=== PATIENT | female | born 1935 | race Caucasian/White ===

== ENCOUNTER → 2017-09-08 | Outpatient (CLI) | payer MEDICARE, OTHER ==
[~2017-09-08] MED LIST: ACETAMINOPHEN650 M5 PO; ADULT LOW DOSE81 MG PO; ALEVE220 MG PO; AMIODARONE HCL400 MG PO; ANASTROZOLE1 MG PO; ANTACID500 MG PO; ARIXTRA SUBQ; ASPIRIN325 PO; CALCIUM 600 +1 EA10 PO; CALTRATE-600 W1 EACH PO; CARDIZEM CD120 MG PO; CARDIZEM CD180 MG PO; CELEBREX 200 M200 M1 PO; CHONDROITIN SU250 MG PO; COLACE 100 MG100 MG PO; COMPLETE M9 MG/15 ML PO; CYMBALTA30 MG PO; DIPHENHYDRAMINE25 M3 PO; ELIQUIS5 MG PO; ESTRACE PO; ESTRACE0.5 MG PO; FLEXERIL PO; FONDAPARIN2.5 MG/0.5 SUBQ; GLUCOSAMINE HC500 MG PO; HYDRALAZINE 5050 M1 PO; HYDROCHLOROTHIA25 M2 PO; HYDROCODON-ACE1 EAC7 PO; HYDROCODONE PO; LASIX 40 MG TAB40 M2 PO; LISINOPRIL PO; LOPRESSOR PO; LOPRESSOR100 MG PO; LOPRESSOR50 PO; MELOXICAM7.5 MG PO; METAMUCIL0.52 GM PO; METAXALONE800 MG PO; METOPROLOL PO; MOBIC7.5 MG PO; MULTAQ400 MG PO; MULTI-VITAMIN1 EAC5 PO; NEURONTIN 300300 M1 PO; NORCO 5-325 TA1 EACH PO; NORVASC10 MG PO; OXYCODONE HCL5 M1 PO; OXYIR5 MG PO; PERCOCET 5-3251 EACH PO; PERCOCET PO; PREDNISONE 20 M20 M1 PO; PRILOSEC 20 MG20 MG PO; RYTHMOL225 MG PO; SPIRONOLACTONE25 M1 PO; TAMIFLU30 MG; TIZANIDINE HCL 22 M1 PO; TOPROL XL25 MG PO; TRAMADOL 50 MG50 MG PO; TRAMADOL PO; TRIAMTERENE-HC1 EAC1 PO; VITAMIN D2000 UNIT PO; XGEVA120 MG/1.7 SQ; ZPAK PO; [UNRECOGNIZED DRUG - OTHER] TOP
--- NOTE | 2017-09-08 14:43 | 2DMMODE ---
[place] [address] 2 D/M-MODE ECHOCARDIOGRAM Name: DONALD GAMEZ Room: [facility]#: [id number] Admission: 09/08/17 Attend Phys: Mc Cline, Discharge: Date of : 31 Date of Service: 09/08/17 1443 Report #: [id number] THIS REPORT FOR: //name// APPROVED REPORT Study performed: 09/08/2017 09:08:06 EXAM: Comprehensive 2D, Doppler, and color-flow Echocardiogram Patient Location: Out-Patient Status: routine BSA: 1.81 HR: 80 bpm BP: 122/80 mmHg Other Information Study Quality: Good Indications Aortic Valve Disease 2D Dimensions LVEF(%): 52.73 (>50%) IVSd: 13.65 (7-11mm) LVOT Diam: 20.71 (18-24mm) LVDd: 29.68 mm PWd: 10.74 (7-11mm) Ascending Ao: 30.08 (22-36mm) LVDs: 21.95 (25-40mm) Aortic Root: 20.81 mm Mata's LVEF: 52.73 % Volumes Left Atrial Volume (Systole) LA ESV Index: 30.00 mL/m2 Aortic Valve AoV Peak Darnell.: 1.47 m/s AO Peak Gr.: 8.65 mmHg LVOT Max P.70 mmHg AO Mean Gr.: 4.90 mmHg LVOT Mean P.03 mmHg LVOT Max V: 0.96 m/s AO V2 VTI: 28.13 cm LVOT Mean V: 0.66 m/s OTTONIEL (VTI): 2.46 cm2 LVOT V1 VTI: 20.57 cm Mitral Valve MV Peak Gr.: 4.22 mmHg MV Mean Gr.: 2.88 mmHg E/A Ratio: 1.12 [place] [address] 2 D/M-MODE ECHOCARDIOGRAM Name: DONALD GAMEZ Room: [facility]#: [id number] Admission: 09/08/17 Attend Phys: Mc Cline, Discharge: Date of : 31 Date of Service: 09/08/17 1443 Report #: [id number] MV Decel. Time: 279.71 ms MV E Max Darnell.: 1.08 m/s MV PHT: 81.12 ms MVA (PHT): 2.71 cm2 TDI E/Lateral E': 13.50 E/Medial E': 18.00 Medial E' Darnell.: 0.06 m/s Lateral E' Darnell.: 0.08 m/s Pulmonary Valve PV Peak Darnell.: 0.75 m/s PV Peak Gr.: 2.22 mmHg Tricuspid Valve TR Peak Gr.: 16.64 mmHg RVSP: 21.64 mmHg Left Ventricle The left ventricle is normal size. There is normal LV segmental wall motion. Mild concentric left ventricular hypertrophy. Left ventricular systolic function is normal. The left ventricular ejection fraction is within the normal range. LVEF is 55-60%. The left ventricular diastolic function is normal. Right Ventricle The right ventricle is normal size. The right ventricular systolic function is normal. Pacemaker lead is present in the right ventricle. Atria Left atrium is mildly dilated. Pacemaker lead is present in the right atrium. Right atrium is mildly dilated. Aortic Valve Aortic valve is mildly calcified. Trace aortic regurgitation. There is no aortic valvular stenosis. Mitral Valve Moderate mitral annular calcification. Mild mitral regurgitation. No evidence of mitral valve stenosis. Tricuspid Valve The tricuspid valve is normal in structure. Mild tricuspid regurgitation. The RVSP is _28___ mmHg. Pulmonic Valve The pulmonary valve is normal in structure. There is no pulmon[place] [address] 2 D/M-MODE ECHOCARDIOGRAM Name: DONALD GAMEZ [id number] Admission: 09/08/17 Attend Phys: Mc Cline, Discharge: Date of : 31 Date of Service: 09/08/17 1443 Report #: [id number] Great Vessels The aortic root is normal in size. IVC is normal in size and collapses with >50% inspiration Pericardium There is no pericardial effusion. <Conclusion> LVEF is 55-60%. Left atrium is mildly dilated. Aortic valve is mildly calcified. Mild mitral regurgitation. <ELECTRONICALLY SIGNED> By: Rogerio Otero MD, FACC 09/08/17 1443 1443 1443 Rogerio Otero MD, FACC /INF
== END ==
LOC: M.CRD 08:50
DX: I34.0 Nonrheumatic mitral (valve) insufficiency (principal); I35.0 Nonrheumatic aortic (valve) stenosis

== ENCOUNTER → 2018-02-02 | Outpatient (CLI) | payer MEDICARE, OTHER | LOC: M.LAB 11:47 | DX: I50.32 Chronic diastolic (congestive) heart failure (principal); I48.0 Paroxysmal atrial fibrillation ==

== ENCOUNTER → 2018-10-06 | Outpatient (CLI) | payer MEDICARE, OTHER | LOC: M.RAD 13:30 | DX: Z13.820 Encounter for screening for osteoporosis (principal); C50.212 Malignant neoplasm of upper-inner quadrant of left female breast; M85.80 Other specified disorders of bone density and structure, unspecified site; Z17.0 Estrogen receptor positive status [ER+]; Z79.811 Long term (current) use of aromatase inhibitors; Z78.0 Asymptomatic menopausal state ==

== ENCOUNTER → 2019-03-02 | Outpatient (CLI) | payer MEDICARE, OTHER ==
[2019-03-02 15:52] LABS: CHOLESTEROL 128 mg/dL (<200); HDL CHOLESTEROL 67 mg/dL (>40); LDL CHOLESTEROL 49 mg/dL (<100); SERUM ASSESSMENT CLEAR; TC:HDL 1.9 Ratio (Not establshd); TRIGLYCERIDE 64 mg/dL (<150); VLDL 13 mg/dL (<40)
== END ==
LOC: M.LAB 15:26
PROVIDERS: Internal Medicine Cardiovascular Disease
DX: I65.21 Occlusion and stenosis of right carotid artery (principal)

== ENCOUNTER → 2019-03-10 | Outpatient (CLI) | payer MEDICARE, OTHER ==
--- NOTE | 2019-03-10 17:04 | CARDNUC ---
[place] [address] CARDIAC NUCLEAR IMAGING REPORT Name: DONALD GAMEZ SANGEETHA Room: [facility]#: [id number] Admission: 03/10/19 Attend Phys: Mc Cline, Discharge: Date of : 31 Date of Service: 03/10/19 1703 Report #: [id number] THIS REPORT FOR: //name// APPROVED REPORT Imaging Protocol: Rest Tc-99m/Stress Tc-99m 1 day Study performed: 03/10/2019 12:45:00 Indication: Atrial Fibrillation Patient Location: Out-Patient Stress Tech: Usha Long Stress Nurse: Alla Louis RN NM Tech:AGUSTO Christie Ht: 5 ft 6 in Wt: 161 lbs BSA: 1.82 m2 BMI: 25.98 Medical History Medical History: a fib, sick sinus syndrom aortic valve stenosis, chf Medications: diltiazem, eliquis, metoprolol Allergies: penicillin Cardiac Risk Factors: age, hypertension, family hx Previous Cardiac Procedures: pacemaker Exercise History: Indeterminate Meds Held (24 hrs): metoprolol Resting Data Rest SPECT myocardial perfusion imaging was performed in supine position 30 minutes following the intravenous injection of 12.0 mCi of Tc-99m Sestamibi. Time of rest injection: 1300 Date: 03/10/2019 The images were gated to evaluate regional wall motion and calculate left ventricular ejection fraction. Administration Route: IV Administration Site: Right AC Pharmacologic Stress Pharmacologic stress test was performed by injecting Regadenoson 0.4 mg IV push over 10-15 seconds immediately followed by the intravenous injection of 34.5 mCi of Tc-99m Sestamibi. Time of stress injection: 1435 Date: 03/10/2019 Administration Route: IV Administration Site: Right AC Gated Stress SPECT was performed 40 [place] [address] CARDIAC NUCLEAR IMAGING REPORT Name: DONALD GAMEZ SANGEETHA Room: [facility]#: [id number] Admission: 03/10/19 Attend Phys: Mc Cline, Discharge: Date of : 31 Date of Service: 03/10/19 1703 Report #: [id number] injection. The images were gated to evaluate regional wall motion and calculate left ventricular ejection fraction. Stress only was performed in the Supine position. Stress Test Details Stress Test: Pharmacologic stress testing performed using 0.4 mg of regadenoson per 5 mL given IV over 10 seconds. Reason for pharmacologic stress test: PPM. HR Max Heart Rate (APMHR): 134 bpm Resting HR: 69 bpm Target HR (85% APMHR): 113 bpm Max HR Achieved: 72 bpm % of APMHR: 53 Recovery HR: 69 bpm BP Resting BP: 161/94 mmHg Max BP: 146/80 mmHg Recovery BP: 143/72 mmHg ECG Resting ECG: Atrial Flutter, LBBB Stress ECG: Atrial Flutter, LBBB ST Change: None Arrhythmia: None Recovery ECG: Atrial Flutter, LBBB Recovery ST Change: None Recovery Arrhythmia: None Clinical Reason for Termination: Completed protocol Exercise duration: 0 min sec Exercise capacity: 1 METs The patient tolerated Lexiscan infusion without significant symptoms. Stress ECG Conclusion The baseline 12-lead EKG shows atrial flutter with left bundle branch block. EKGs obtained during and post Lexiscan infusion show atrial flutter with left bundle-branch block. There were no significant stress-induced arrhythmias. Study Quality Study: Good Artifact: [place] [address] CARDIAC NUCLEAR IMAGING REPORT Name: DONALD GAMEZ OCTOBER Room: [facility]#: [id number] Admission: 03/10/19 Attend Phys: Mc Cline, Discharge: Date of : 31 Date of Service: 03/10/19 1703 Report #: [id number] Study Data Post stress, the left ventricular ejection was 86%.. Perfusion Normal left ventricular perfusion. Wall Motion Normal left ventricular wall motion. Nuclear Conclusion ECG Findings: non-diagnostic Clinical Findings: negative for ischemia Nuclear Findings: negative for ischemia Exercise Capacity: not assessed Left Ventricular Function: normal Risk Study: low Myocardial perfusion images show no defect to suggest infarct or ischemia are systolic function appears normal on gated studies. This is a low risk study. <Conclusion> The baseline 12-lead EKG shows atrial flutter with left bundle branch block. EKGs obtained during and post Lexiscan infusion show atrial flutter with left bundle-branch block. There were no significant stress-induced arrhythmias. <ELECTRONICALLY SIGNED> By: Mc Cline MD, FACC 03/10/19 170 02 02 Mc Cline MD, FACC /INF
== END ==
LOC: M.NUC 02-27 17:35
DX: I25.10 Atherosclerotic heart disease of native coronary artery without angina pectoris (principal); I50.32 Chronic diastolic (congestive) heart failure; I48.91 Unspecified atrial fibrillation; Z79.899 Other long term (current) drug therapy; Z95.0 Presence of cardiac pacemaker

== ENCOUNTER → 2019-07-31 | Outpatient (CLI) | payer MEDICARE, OTHER ==
--- NOTE | 2019-07-31 15:50 | 2DMMODE ---
[place] [address] 2 D/M-MODE ECHOCARDIOGRAM Name: DONALD GAMEZ Room: [facility]#: [id number] Admission: 07/31/19 Attend Phys: Mc Cline, Discharge: Date of : 31 Date of Service: 07/31/19 1549 Report #: [id number] THIS REPORT FOR: cc: Kassie Mason MD, Lin W. MD Blick, David R. MD [facility] ~ APPROVED REPORT Study performed: 07/31/2019 12:50:07 EXAM: Comprehensive 2D, Doppler, and color-flow Echocardiogram Patient Location: Out-Patient BSA: 1.74 HR: 72 bpm BP: 122/80 mmHg Other Information Study Quality: Good Indications Murmur 2D Dimensions IVSd: 11.68 (7-11mm) LVOT Diam: 20.39 (18-24mm) LVDd: 43.79 mm PWd: 9.26 (7-11mm) Ascending Ao: 26.89 (22-36mm) LVDs: 18.95 (25-40mm) Aortic Root: 25.01 mm Volumes Left Atrial Volume (Systole) LA ESV Index: 31.50 mL/m2 Aortic Valve AoV Peak Darnell.: 1.77 m/s AO Peak Gr.: 12.48 mmHg LVOT Max P.22 mmHg AO Mean Gr.: 7.14 mmHg LVOT Mean P.12 mmHg LVOT Max V: 1.03 m/s AO V2 VTI: 35.45 cm LVOT Mean V: 0.67 m/s OTTONIEL (VTI): 1.88 cm2 LVOT V1 VTI: 20.43 cm Mitral Valve MV Peak Gr.: 6.97 [place] [address] 2 D/M-MODE ECHOCARDIOGRAM Name: DONALD GAMEZ [id number] Admission: 07/31/19 Attend Phys: Mc Cline, Discharge: Date of : 31 Date of Service: 07/31/19 1549 Report #: [id number] MV Mean Gr.: 3.66 mmHg E/A Ratio: 1.18 MV Decel. Time: 250.70 ms MV E Max Darnell.: 1.09 m/s MV PHT: 72.70 ms MVA (PHT): 3.03 cm2 TDI E/Lateral E': 15.57 E/Medial E': 13.63 Medial E' Darnell.: 0.08 m/s Lateral E' Darnell.: 0.07 m/s Pulmonary Valve PV Peak Darnell.: 0.85 m/s PV Peak Gr.: 2.91 mmHg Tricuspid Valve RAP Estimate: 5.00 mmHg TR Peak Gr.: 21.12 mmHg RVSP: 26.12 mmHg PA Pressure: 26.12 mmHg Left Ventricle The left ventricle is normal size. There is normal LV segmental wall motion. There is normal left ventricular wall thickness. Left ventricular systolic function is normal. The left ventricular ejection fraction is within the normal range. LVEF is 65-70%. The left ventricular diastolic function is normal. Right Ventricle The right ventricle is normal size. The right ventricular systolic function is normal. Pacemaker lead is present in the right ventricle. Atria Left atrium is mildly dilated. Pacemaker lead is present in the right atrium. Aortic Valve Aortic valve is mildy calcified. No aortic regurgitation is present. There is no aortic valvular stenosis. Mitral Valve Moderate mitral annular calcification. Mild mitral regurgitation. Borderline mitral stenosis. Tricuspid Valve The tricuspid valve is normal in structure. Mild [place]icus[place] [address] 2 D/M-MODE ECHOCARDIOGRAM Name: DONALD GAMEZ Room: [facility]#: [id number] Admission: 07/31/19 Attend Phys: Mc Cline, Discharge: Date of : 31 Date of Service: 07/31/19 1549 Report #: [id number] Pulmonic Valve The pulmonary valve is normal in structure. There is no pulmonic valvular regurgitation. Great Vessels The aortic root is normal in size. IVC is normal in size and collapses >50% with inspiration. Pericardium There is no pericardial effusion. <Conclusion> LVEF is 65-70%. Left atrium is mildly dilated. Aortic valve is mildy calcified. Mild mitral regurgitation. <ELECTRONICALLY SIGNED> By: Rogerio Otero MD, FACC 07/31/19 1549 1549 1549 Rogerio Otero MD, FACC /INF
== END ==
LOC: M.CRD 12:44
DX: I08.3 Combined rheumatic disorders of mitral, aortic and tricuspid valves (principal)

== ENCOUNTER → 2020-06-18 | Outpatient (CLI) | payer MEDICARE, OTHER ==
[2020-06-18 09:25] LABS: CHOLESTEROL 139 mg/dL (<200); HDL CHOLESTEROL 76 mg/dL (>40); LDL CHOLESTEROL 52 mg/dL (<100); TC:HDL 1.8 Ratio (Not establshd); TRIGLYCERIDE 55 mg/dL (<150); VLDL 11 mg/dL (<40)
[2020-06-18 09:26] LABS: SERUM ASSESSMENT Clear
== END ==
LOC: M.LAB 08:49
PROVIDERS: ATTEND Internal Medicine Cardiovascular Disease
DX: I65.21 Occlusion and stenosis of right carotid artery (principal)

== ENCOUNTER → 2020-09-27 | Outpatient (CLI) | payer MEDICARE, OTHER | END | disposition home or self-care (01) | LOC: M.RAD 12:46 | PROVIDERS: ATTEND Orthopaedic Surgery | DX: M25.552 Pain in left hip (principal); I48.91 Unspecified atrial fibrillation; I50.30 Unspecified diastolic (congestive) heart failure; Z98.890 Other specified postprocedural states; Z79.899 Other long term (current) drug therapy; Z79.01 Long term (current) use of anticoagulants; Z88.0 Allergy status to penicillin ==

== ENCOUNTER → 2020-12-23 | Outpatient (CLI) | payer MEDICARE, OTHER ==
[2020-12-23 09:12] LABS: CHOLESTEROL 162 mg/dL (<200); HDL CHOLESTEROL 81 mg/dL (>40); LDL CHOLESTEROL 64 mg/dL (<100); TRIGLYCERIDE 85 mg/dL (<150); VLDL 17 mg/dL (<40)
[2020-12-23 09:15] LABS: SERUM ASSESSMENT Clear
== END ==
LOC: M.LAB 08:28
PROVIDERS: ATTEND Internal Medicine Cardiovascular Disease
DX: I65.21 Occlusion and stenosis of right carotid artery (principal)

== ENCOUNTER → 2021-01-15 | Outpatient (CLI) | payer MEDICARE, OTHER | LOC: M.RAD 14:30 | PROVIDERS: ATTEND Nurse Practitioner Family | DX: Z78.0 Asymptomatic menopausal state (principal); Z79.811 Long term (current) use of aromatase inhibitors ==

== ENCOUNTER → 2021-06-11 | Outpatient (CLI) | payer MEDICARE, OTHER ==
--- NOTE | 2021-06-11 13:31 | 2DMMODE ---
[place] [address] 2 D/M-MODE ECHOCARDIOGRAM Name: DONALD GAMEZ SANGEETHA Room: [facility].#: [id number] Admission: 06/11/21 Attend Phys: Mc Cline, Discharge: Date of : 31 Date of Service: 06/11/21 1331 Report #: [id number] THIS REPORT FOR: cc: Kassie Mason MD, Lin W. MD Holkins, John M. MD [facility] ~ APPROVED REPORT Study performed: 06/11/2021 11:40:02 EXAM: Comprehensive 2D, Doppler, and color-flow Echocardiogram Patient Location: Out-Patient BSA: 1.77 HR: 88 bpm BP: 148/72 mmHg Other Information Study Quality: Good Indications Atrial Fibrillation 2D Dimensions IVSd: 13.47 (7-11mm) LVOT Diam: 19.70 (18-24mm) LVDd: 35.99 mm PWd: 11.68 (7-11mm) Ascending Ao: 31.81 (22-36mm) LVDs: 17.92 (25-40mm) Aortic Root: 28.00 mm Volumes Left Atrial Volume (Systole) LA ESV Index: 35.50 mL/m2 Aortic Valve AoV Peak Darnell.: 1.71 m/s AO Peak Gr.: 11.67 mmHg LVOT Max P.75 mmHg AO Mean Gr.: 6.66 mmHg LVOT Mean P.30 mmHg LVOT Max V: 1.09 m/s AO V2 VTI: 31.03 cm LVOT Mean V: 0.69 m/s OTTONIEL (VTI): 1.80 cm2 LVOT V1 VTI: 18.32 cm Mitral Valve MV Peak Gr.: 11.22 [place] [address] 2 D/M-MODE ECHOCARDIOGRAM Name: DONALD GAMEZ SANGEETHA Room: [facility]#: [id number] Admission: 06/11/21 Attend Phys: Mc Cline, Discharge: Date of : 31 Date of Service: 06/11/21 1331 Report #: [id number] MV Mean Gr.: 4.47 mmHg E/A Ratio: 2.37 MV Decel. Time: 169.90 ms MV E Max Darnell.: 1.38 m/s MV PHT: 49.27 ms MVA (PHT): 4.47 cm2 TDI E/Lateral E': 10.62 E/Medial E': 13.80 Medial E' Darnell.: 0.10 m/s Lateral E' Darnell.: 0.13 m/s Pulmonary Valve PV Peak Darnell.: 0.90 m/s PV Peak Gr.: 3.23 mmHg Tricuspid Valve RAP Estimate: 5.00 mmHg TR Peak Gr.: 26.35 mmHg RVSP: 31.35 mmHg PA Pressure: 31.35 mmHg Left Ventricle The left ventricle is normal size. There is normal LV segmental wall motion. Moderate concentric left ventricular hypertrophy. Left ventricular systolic function is normal. The left ventricular ejection fraction is within the normal range. LVEF is 65-70%. This study is not technically sufficient to allow evaluation of the LV diastolic function due to atrial fibrillation. Right Ventricle The right ventricle is normal size. The right ventricular systolic function is normal. Pacemaker lead is present in the right ventricle. Atria Left atrium is moderately dilated. The right atrium size is normal. Aortic Valve Mild aortic valve sclerosis. No aortic regurgitation is present. There is no aortic valvular stenosis. Mitral Valve Severe mitral annular calcification. Mild to moderate mitral regurgitation. No evidence of mitral valve stenosis. Tricuspid Valve The tricuspid valve is normal in structure. Mild [place] [address] 2 D/M-MODE ECHOCARDIOGRAM Name: DONALD GAMEZ SANGEETHA Room: [facility]#: [id number] Admission: 06/11/21 Attend Phys: Mc Cline, Discharge: Date of : 31 Date of Service: 06/11/21 1331 Report #: [id number] Pulmonic Valve The pulmonary valve is normal in structure. There is no pulmonic valvular regurgitation. Great Vessels The aortic root is normal in size. IVC is normal in size and collapses >50% with inspiration. Pericardium There is no pericardial effusion. <Conclusion> The left ventricle is normal size. Moderate concentric left ventricular hypertrophy. Left ventricular systolic function is normal. The left ventricular ejection fraction is within the normal range. LVEF is 65-70%. This study is not technically sufficient to allow evaluation of the LV diastolic function due to atrial fibrillation. The right ventricle is normal size. Left atrium is moderately dilated. The right atrium size is normal. Mild aortic valve sclerosis. No aortic regurgitation is present. There is no aortic valvular stenosis. Severe mitral annular calcification. Mild to moderate mitral regurgitation. No evidence of mitral valve stenosis. The tricuspid valve is normal in structure. Mild tricuspid regurgitation. IVC is normal in size and collapses >50% with inspiration. There is no pericardial effusion. There is normal LV segmental wall motion. Pacemaker lead is present in the right ventricle. <ELECTRONICALLY SIGNED> By: Earl Carter MD, FACC 06/11/21 1331 30 30 Earl Carter MD, FACC /INF
--- NOTE | 2021-06-11 16:41 | CARDNUC ---
[place] [address] CARDIAC NUCLEAR IMAGING REPORT Name: DONALD GAMEZ Room: [facility]#: [id number] Admission: 06/11/21 Attend Phys: Mc Cline, Discharge: Date of : 31 Date of Service: 06/11/21 1641 Report #: [id number] THIS REPORT FOR: cc: Kassie Mason MD, Lin W. MD Liston, Michael J. MD [facility] ~ APPROVED REPORT Imaging Protocol: Stress Tc-99m/Rest Tc-99m 1 day Study performed: 06/11/2021 09:10:40 Indication: Dyspnea Patient Location: Out-Patient Stress Nurse: Alla Louis RN Ht: 5 ft 3 in Wt: 151 lbs BSA: 1.72 m2 BMI: 26.74 Medical History Medical History: Carotid artery disease, CHF, HTN, ICD,, HTN, Pacemaker in situ, PVD, SSS Medications: eliquis, metoprolol, maxide Allergies: penicillin Cardiac Risk Factors: Age, HTN, PVD Previous Cardiac Procedures: PPM Exercise History: Sedentary Meds Held (24 hrs): metoprolol Resting Data Rest SPECT myocardial perfusion imaging was performed in supine position 30 minutes following the intravenous injection of 9.7 mCi of Tc-99m Sestamibi. Time of rest injection: 08:05 The images were gated to evaluate regional wall motion and calculate left ventricular ejection fraction. Administration Route: IV Administration Site: Right Wrist Pharmacologic Stress Pharmacologic stress test was performed by injecting Regadenoson 0.4 mg IV push over 10-15 seconds immediately followed by the intravenous injection of 35.4 mCi of Tc-99m Sestamibi. Time of stress injection: 09:10 Administration Route: [place] [address] CARDIAC NUCLEAR IMAGING REPORT Name: DONALD GAMEZ Room: [facility]#: [id number] Admission: 06/11/21 Attend Phys: Mc Cline, Discharge: Date of : 31 Date of Service: 06/11/21 1641 Report #: [id number] Administration Site: Right Wrist Heart Rate at time of stress injection: 75 bpm. Gated Stress SPECT was performed 45 minutes after stress injection. The images were gated to evaluate regional wall motion and calculate left ventricular ejection fraction. Stress Test Details Stress Test: Pharmacologic stress testing performed using 0.4 mg of regadenoson per 5 mL given IV over 10 seconds. Reason for pharmacologic stress test: PPM. HR Max Heart Rate (APMHR): 132 bpm Resting HR: 71 bpm Target HR (85% APMHR): 112 bpm Max HR Achieved: 80 bpm % of APMHR: 60 Recovery HR: 71 bpm BP Resting BP: 138/85 mmHg Max BP: 110/72 mmHg Recovery BP: 124/82 mmHg ECG Resting ECG: Ventricular paced rhythm Stress ECG: Ventricular paced rhythm ST Change: None Arrhythmia: None Recovery ECG: Ventricular paced rhythm Recovery ST Change: None Recovery Arrhythmia: None Clinical Reason for Termination: Completed protocol The patient tolerated Lexiscan infusion without significant cardiac symptoms. Stress ECG Conclusion The baseline twelve-lead EKG shows atrial sensing with ventricular pacing. EKGs obtained during and post Lexiscan infusion show atrial sensing and ventricular pacing. There were no significant EKG changes with Lexiscan infusion. Study Quality Study: Good Artifact: [place] [address] CARDIAC NUCLEAR IMAGING REPORT Name: DONALD GAMEZ OCTOBER Room: [facility]#: [id number] Admission: 06/11/21 Attend Phys: Mc Cline, Discharge: Date of : 31 Date of Service: 06/11/21 1641 Report #: [id number] Study Data At rest, the left ventricular ejection fraction was 84%.. Post stress, the left ventricular ejection was 83%.. TID = 0.96. Perfusion Perfusion images obtained at rest and post Lexiscan stress show uniform uptake of the radioisotope throughout the myocardium. There were no defects to suggest infarct or ischemia. Wall Motion Normal left ventricular wall motion. Nuclear Conclusion ECG Findings: negative for ischemia Clinical Findings: negative for ischemia Nuclear Findings: negative for ischemia Exercise Capacity: not assessed Left Ventricular Function: normal Risk Study: low Perfusion images show no defect to suggest infarct or ischemia. Left ventricular systolic function appears normal on gated studies. This is a low risk study. <Conclusion> The baseline twelve-lead EKG shows atrial sensing with ventricular pacing. EKGs obtained during and post Lexiscan infusion show atrial sensing and ventricular pacing. There were no significant EKG changes with Lexiscan infusion. <ELECTRONICALLY SIGNED> By: Mc Cline MD, FACC 06/11/211640 40 40 Mc Cline MD, FACC /INF
== END ==
LOC: M.CRD 05-13 09:51 → M.NUC 07:31
PROVIDERS: ATTEND Internal Medicine Cardiovascular Disease
DX: I08.3 Combined rheumatic disorders of mitral, aortic and tricuspid valves (principal); I10 Essential (primary) hypertension; R60.0 Localized edema

== ENCOUNTER → 2021-06-18 | Outpatient (CLI) | payer MEDICARE, OTHER ==
[2021-06-18 16:25] LABS: CHOLESTEROL 157 mg/dL (<200); HDL CHOLESTEROL 86 mg/dL (>40); LDL CHOLESTEROL 48 mg/dL (<100); TC:HDL 1.8 Ratio (Not establshd); TRIGLYCERIDE 117 mg/dL (<150); VLDL 23 mg/dL (<40)
[2021-06-18 16:26] LABS: SERUM ASSESSMENT Clear
== END ==
LOC: M.LAB 15:33
PROVIDERS: ATTEND Internal Medicine Cardiovascular Disease
DX: I65.21 Occlusion and stenosis of right carotid artery (principal)

== ENCOUNTER → 2021-06-25 | Outpatient (CLI) | payer MEDICARE, OTHER | LOC: M.ULTRA 06-19 14:45 | PROVIDERS: ATTEND Internal Medicine Cardiovascular Disease | DX: J98.11 Atelectasis (principal); J90 Pleural effusion, not elsewhere classified; I51.7 Cardiomegaly; I31.3 Pericardial effusion (noninflammatory); I65.23 Occlusion and stenosis of bilateral carotid arteries; J84.89 Other specified interstitial pulmonary diseases; I35.0 Nonrheumatic aortic (valve) stenosis; I70.0 Atherosclerosis of aorta; M47.814 Spondylosis without myelopathy or radiculopathy, thoracic region; R91.8 Other nonspecific abnormal finding of lung field; R16.1 Splenomegaly, not elsewhere classified ==